=== PATIENT | female | born 1995 | race Caucasian/White ===

== ENCOUNTER → 2018-10-03 | Outpatient (CLI) | payer OTHER ==
[2018-10-05 10:09] LABS: RUBELLA IGG AB 9.75 index (Immune >0.); RUBEOLA IGG AB >300.0 AU/mL (Immune >29)
== END ==
LOC: OD 16:50
PROVIDERS: ATTEND Nurse Practitioner Family
DX: Z01.84 Encounter for antibody response examination (principal)
CPT/HCPCS: 36415; 86317; 86735; 86762; 86765; 86787